=== PATIENT | male | born 2005 | race Caucasian/White ===

== ENCOUNTER 2025-05-12 12:19 | Emergency (ER) | payer OTHER ==
[2025-05-12] MEDS ORDERED: Lidocaine 1% w/Epinephrine 1:100K 20 ML VIAL ONE (12:58)
[2025-05-12] MEDS ORDERED: Bacitracin 1 PK ONE (14:28)
== END 2025-05-12 15:25 | disposition home or self-care (01) ==
LOC: ERS 12:19
DX: S91.011A Laceration without foreign body, right ankle, initial encounter (principal); V27 Motorcycle rider injured in collision with fixed or stationary object
CPT/HCPCS: 12002; 99283